=== PATIENT | male | born 1975 | race African-American/Black ===

== ENCOUNTER 2023-09-17 08:53 | Day surgery (SDC) | payer OTHER ==
[~2023-09-17] VITALS: Ht 193 cm; Wt 132.0 kg
[~2023-09-17 08:53] MED LIST: FLOMAX 0.40.4 MG/CAP PO; LR 1,000 ML IV SCH; Ondansetron 4 MG/2 ML VIAL IV PRN; PERCOCET 325 MG1 TA2 PO; ZOFRAN ODT4 MG PO
[2023-09-17] MEDS ORDERED: ELIQUIS 5MG PO (09:28)
[2023-09-17] MEDS ORDERED: ZOLOFT 100MG100 MG PO (09:29)
[2023-09-17] MEDS ORDERED: INDERAL LA160 MG PO (09:29)
[2023-09-17] MEDS ORDERED: Lidocaine PF 2% (20 MG/ML) 5 ML VIAL ONE (10:30)
[2023-09-17] MEDS ORDERED: fentaNYL 50 MCG/ML 2 ML VIAL ONE (10:30)
--- NOTE | 2023-09-17 10:39 | NUR ---
0909 Patient ambulatory to bay 6 with steady gait, breathing even and unlabored. Pt is alert and oriented, accompanied by his . Consents reviewed and signed by the patient. IV established. LR infusion via gravity at KVO. Call light in reach. Warm blanket provided.
[2023-09-17 10:41] VITALS: BP 135/87; PULSE 72; TEMP 98
[2023-09-17 12:30] VITALS: BP 131/95; PULSE 67
--- NOTE | 2023-09-17 12:39 | NUR ---
1230: Pt arrived back from the procedure on a stretcher due to increased sleepiness, though VSS and RR even and unlabored. Significant other at bedside. Provided with fluids and S/O brought solid food.
[2023-09-17 12:45] VITALS: BP 116/99; PULSE 65
--- NOTE | 2023-09-17 13:20 | NUR ---
Last set of VS WNL, Dr. Ulloa spoke to both the pt and the s/o. RN discontinued IV without incident and catheter intact. Reviewed discharged instructions and teachings, answered all questions. Wheeled to POV with .
== END 2023-09-17 13:23 | disposition home or self-care (01) ==
LOC: SDCO 08:53
DX: K64.0 First degree hemorrhoids (principal); K63.5 Polyp of colon; K21.00 Gastro-esophageal reflux disease with esophagitis, without bleeding; K62.89 Other specified diseases of anus and rectum; K44.9 Diaphragmatic hernia without obstruction or gangrene; G47.33 Obstructive sleep apnea (adult) (pediatric); Z87.891 Personal history of nicotine dependence; Z80.0 Family history of malignant neoplasm of digestive organs
CPT/HCPCS: J2704; J3010; J7120